=== PATIENT | male | born 2000 | race African-American/Black ===

== ENCOUNTER 2019-11-13 08:56 | Emergency (ER) | payer SELFPAY ==
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
[2019-11-13 08:52] VITALS: BP 172/80; PULSE 69; RESP 19; TEMP 37.1; O2SAT 99
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
--- NOTE | 2019-11-13 09:25 | PC.NURSE ---
ISP Officer at bedside interviewing patient.
[2019-11-13 11:36] VITALS: BP 132/84; PULSE 71; RESP 20; O2SAT 100
== END 2019-11-13 11:42 | disposition home or self-care (01) ==
PROVIDERS: Emergency Provider Emergency Medicine
DX: S46.912A Strain of unspecified muscle, fascia and tendon at shoulder and upper arm level, left arm, initial encounter (principal); V43.53XA Car driver injured in collision with pick-up truck in traffic accident, initial encounter
CPT/HCPCS: 72072; 73030; 99284